=== PATIENT | female | born 1970 | race Caucasian/White ===

== ENCOUNTER 2019-10-19 14:35 | Emergency (ER) | payer OTHER ==
[~2019-10-19] VITALS: Ht 165.1 cm; Wt 112.7 kg
[~2019-10-19 14:35] MED LIST: COLCRYS0.6 MG PO; IBU600 MG PO; NORCO 325 MG-51 TAB PO; PREDNISONE20 MG PO; PRIL40 PO; PRINIVIL10 MG PO; PRINZIDE 12.5 M1 TAB PO; SINGULAIR 110 MG/TAB PO; VENTOLIN0.09 MG IH; ZOFRAN ODT4 MG PO; ZOLOFT 100MG100 MG PO; ZYRTEC 10MG10 MG PO
[2019-10-19 14:46] VITALS: TEMP 98.4
[2019-10-19 16:08] LABS: BASO % 0.2 % (0.0-2.0); EOS % 0.2 % (0-4.0); GRAN # 7.3 (1.4-6.5); GRAN % 82.8 % (42.2-75.2); HEMATOCRIT 37.8 % (37.0-47.0); HEMOGLOBIN 12.2 g/dl (12.5-16.0); LYMPH # 1.1 (1.2-3.4); LYMPH % 12.1 % (20.0-51.0); MEAN CELL VOLUME 84 fl (80.0-100.0); MEAN CORPUSCULAR HEMOGLOBIN 27 pg (27.0-31.0); MEAN CORPUSCULAR HGB CONC 32 g/dl (33.0-37.0); MEAN PLATELET VOLUME 9.1 fl (7.4-10.4); MONO # 0.4 (0.1-0.6); MONO % 4.1 % (1.7-9.3); PLATELET COUNT 364 K/mm3 (130-400); RED BLOOD COUNT 4.49 M/mm3 (4.10-5.30); REDCELL DISTRIBUTION WIDTH-CV 13.7 % (11.5-14.5)
[2019-10-19 16:10] LABS: INR 1.1 (0.8-3.0); PROTHROMBIN TIME 11.8 SECONDS (9.7-12.8)
[2019-10-19 16:17] LABS: ALANINE AMINOTRANSFERASE 40 U/L (4-34); ALBUMIN 4.4 gm/dL (3.5-5.0); ALKALINE PHOSPHATASE 75 U/L (50-136); ANION GAP 9 mmol/L (7-16); AST,SGOT 56 U/L (15-37); BILIRUBIN,TOTAL 0.4 mg/dL (0.0-1.0); BLOOD UREA NITROGEN 15 mg/dL (7-17); C-REACTIVE PROTEIN 1.7 mg/dL (0.0-0.9); CALCIUM 9.6 mg/dL (8.4-10.2); CARBON DIOXIDE 25 mmol/L (22-30); CHLORIDE 103 mmol/L (98-107); CREATININE, serum 0.77 (0.52-1.25); GLUCOSE 108 mg/dL (74-106); POTASSIUM 4.4 mmol/L (3.4-5.0); SODIUM 136 mmol/L (137-145); TOTAL PROTEIN 8.1 gm/dL (6.4-8.2)
[2019-10-19 16:40] LABS: TROPONIN-I < 0.012 ng/mL (0.000-0.035)
[2019-10-19] MEDS ORDERED: IPRATROPIUM BROM3 M1 IH (17:10)
[2019-10-19] MEDS ORDERED: NEB MC (17:11)
[2019-10-19 17:25] VITALS: BP 144/83; PULSE 89
== END 2019-10-19 17:26 | disposition home or self-care (01) ==
LOC: COL.ER 14:35
PROVIDERS: Nurse Practitioner Primary Care
DX: J45.901 Unspecified asthma with (acute) exacerbation (principal); I10 Essential (primary) hypertension; Z20.828 Contact with and (suspected) exposure to other viral communicable diseases

== ENCOUNTER 2019-10-23 10:28 | Observation (INO) | payer OTHER ==
[~2019-10-23] VITALS: Ht 165.1 cm; Wt 117.5 kg
[~2019-10-23 10:28] MED LIST changes: +IPRATROPIUM BROM3 M1 IH; +NEB MC
[2019-10-23 11:16] LABS: BASO # 0.1 (0.0-0.2); BASO % 0.5 % (0.0-2.0); EOS # 0.1 (0.0-0.7); EOS % 0.9 % (0-4.0); GRAN # 7.3 (1.4-6.5); GRAN % 69.2 % (42.2-75.2); HEMOGLOBIN 13.2 g/dl (12.5-16.0); LYMPH # 2.6 (1.2-3.4); LYMPH % 24.4 % (20.0-51.0); MEAN CELL VOLUME 85 fl (80.0-100.0); MEAN CORPUSCULAR HEMOGLOBIN 27 pg (27.0-31.0); MEAN CORPUSCULAR HGB CONC 32 g/dl (33.0-37.0); MONO # 0.5 (0.1-0.6); MONO % 4.6 % (1.7-9.3); PLATELET COUNT 389 K/mm3 (130-400); RED BLOOD COUNT 4.82 M/mm3 (4.10-5.30); REDCELL DISTRIBUTION WIDTH-CV 14.1 % (11.5-14.5)
[2019-10-23 11:26] LABS: ALANINE AMINOTRANSFERASE 44 U/L (4-34); ALBUMIN 4.7 gm/dL (3.5-5.0); ALKALINE PHOSPHATASE 80 U/L (50-136); ANION GAP 12 mmol/L (7-16); AST,SGOT 25 U/L (15-37); BILIRUBIN,TOTAL 0.4 mg/dL (0.0-1.0); BLOOD UREA NITROGEN 24 mg/dL (7-17); C-REACTIVE PROTEIN 1.4 mg/dL (0.0-0.9); CARBON DIOXIDE 27 mmol/L (22-30); CHLORIDE 99 mmol/L (98-107); CREATININE, serum 0.99 (0.52-1.25); GLUCOSE 82 mg/dL (74-106); POTASSIUM 4.1 mmol/L (3.4-5.0); SODIUM 138 mmol/L (137-145); TOTAL PROTEIN 8.4 gm/dL (6.4-8.2)
[2019-10-23 11:34] LABS: TROPONIN-I < 0.012 ng/mL (0.000-0.035)
[2019-10-23 16:21] VITALS: BP 116/92; PULSE 65; TEMP 98.1
--- NOTE | 2019-10-23 19:36 | NUR ---
Pt arrived to floor form ED this afternoon, all initial assessments complete.
--- NOTE | 2019-10-23 20:00 | NUR ---
Assessment complete. Patient complains of a very severe dry cough, even immediately after a breathing treatment; Dr. Flowers contacted and orders 10ml of Robitussin, which is administered. PRN morphine is adminstered for the pain her excessive coughing has caused. No edema is present. Will continue to monitor.
[2019-10-23 20:15] VITALS: BP 119/59; PULSE 88; TEMP 97.9
[2019-10-23 23:14] VITALS: BP 113/75; PULSE 99; TEMP 98
[2019-10-24 03:27] VITALS: BP 101/49; PULSE 86; TEMP 97.9
[2019-10-24 07:25] VITALS: BP 113/83; PULSE 70; TEMP 98.2
--- NOTE | 2019-10-24 09:33 | NUR ---
Pt awake and alert upon entry, still has an intractable cough, some C/O painrelated to the coughing. Shift assessments complete, left Pt call light in reach, bed in lowest position.
[2019-10-24 11:30] VITALS: BP 96/50; PULSE 69; TEMP 97.8
--- NOTE | 2019-10-24 12:47 | NUR ---
Initial visit; Patient was having a difficult time talking due to coughing, [facility] introduced herself letting patient know of the availability of spiritual care and a [facility] to offer prayer. She nodded "Thank You" and she understands that if she would like a [facility] visit she can tell her nurse and she will contact [facility].
--- NOTE | 2019-10-24 15:34 | NUR ---
CODY met with the patient to discuss discharge plan. The patient lives in [place] with her fiance, Valente Lyons (ph#[phone]), and son. She reports independence with ADLs and does not have any DME. The patient's PCP is Dr. Gage Vo and she receives her medications at [facility]. She reports no difficulties obtaining her meds. The patient does not have advanced directives completed. The patient plans to return home with her family upon discharge. No additional needs at this time.
[2019-10-24 16:24] VITALS: BP 99/56; PULSE 66; TEMP 98.1
--- NOTE | 2019-10-24 18:44 | NUR ---
Pt resting in the room, change in cough suppressant has reduced her coughing. Pt has had C/O headache and muscular pain from the coughing, medications given for relief. VS have remained stable.
[2019-10-24 20:01] VITALS: BP 108/59; PULSE 70; TEMP 98.6
--- NOTE | 2019-10-24 20:28 | NUR ---
Assessment complete at this time. Patient is still having a severe dry cough, which causes her pain in her trunkal area. She is breathing on room air but states she has to catch her breath after a coughing spell. No edema is present. Will continue to manage cough and pain.
[2019-10-24 23:54] VITALS: BP 115/55; PULSE 71; TEMP 98.3
[2019-10-25 04:20] VITALS: BP 117/60; PULSE 57; TEMP 97.3
[2019-10-25 07:51] VITALS: BP 121/89; PULSE 78; TEMP 98.1
--- NOTE | 2019-10-25 08:19 | NUR ---
Assessment completed, alert/oriented, vital signs stable, patient is having a severe episode of dry coughing this morning, I have given Morphine 2mg as well as the schedule cough syrup with hydrocodone, lung sounds are diminished but clear, she stated she was doing ok until she started to eat breakfast and that triggered the coughing, she wore her c-pap through the night, heart RRR/ distal pulses are palpable, will give the medicaitons a few minutes to take effect and will continue to monitor, patient denies other needs at this time
[2019-10-25 12:15] VITALS: BP 129/66; PULSE 68; TEMP 97.8
[2019-10-25 17:16] VITALS: BP 127/60; PULSE 69; TEMP 98.3
[2019-10-25 20:00] VITALS: BP 110/56; PULSE 66; TEMP 98.1
[2019-10-25 23:18] VITALS: BP 121/62; PULSE 58; TEMP 97.9
--- NOTE | 2019-10-26 03:12 | NUR ---
Pt complained of restlessness, contacted provider for Melatonin, provider did not return phone call. Pt able to rest for short periods of time. Pt has c/o mild pain at chest wall due to coughing. Pt on bipap during sleep. Has not had any anxiety this shift. Calm, and relaxed for the majority of the evening into the night. No further concerns at this time. Call light within reach.
[2019-10-26 03:17] VITALS: BP 116/67; PULSE 64; TEMP 98.2
[2019-10-26 08:03] VITALS: BP 107/54; PULSE 63; TEMP 98.1
--- NOTE | 2019-10-26 09:12 | NUR ---
PATIENT ASSESSMENT COMPLETED. SHE CONTINUES TO HAVE A NONPRODUCTIVE COUGH. SHE FEELS THE BREATHING TREATMENT BEFORE EATING WORKED ALOT BETTER. SHE COMPLAINS OF PAIN WHEN TAKING A DEEP BREATH. PRN TYLENOL #3 GIVEN. DECLINES WANTING THE COUGH DROP OR LIQUID.WAS ABLE TO EAT HOT CEREAL WITHOUT DIFFICULTY
[2019-10-26] MEDS ORDERED: TUSS PO (09:37)
[2019-10-26] MEDS ORDERED: TYLENOL W/COD1 UDTAB PO (09:37)
[2019-10-26] MEDS ORDERED: PULMICORT0.5 MG/2 M IH (09:38)
[2019-10-26] MEDS ORDERED: PREDNISONE10 MG PO (09:40)
[2019-10-26] MEDS ORDERED: DOXYCYCLINE 10100 MG PO (09:43)
--- NOTE | 2019-10-26 11:20 | NUR ---
PATIENT DISCHARGED TO HOME VIA WHEELCHAIR. ALL BELONGINGS SENT WITH PATIENT. DISCHARGE INSTRUCTIONS REVIEWED WITH HER AND PREDNISONE SCRIPT GIVEN. DENIES OTHER QUESTIONS OR CONCERNS AT THIS TIME.
== END 2019-10-26 11:20 | disposition home or self-care (01) ==
LOC: COL.ER 10:28 → MEDICAL 13:07
PROVIDERS: Emergency Medicine; ADMIT Student in an Organized Health Care Education/Training Program
DX: J45.21 Mild intermittent asthma with (acute) exacerbation (principal); M94.0 Chondrocostal junction syndrome [Tietze]; I10 Essential (primary) hypertension; K21.9 Gastro-esophageal reflux disease without esophagitis; F32.9 Major depressive disorder, single episode, unspecified; F41.9 Anxiety disorder, unspecified; R05 Cough; Z20.828 Contact with and (suspected) exposure to other viral communicable diseases; Z79.51 Long term (current) use of inhaled steroids; Z91.048 Other nonmedicinal substance allergy status; Z88.1 Allergy status to other antibiotic agents; Z91.040 Latex allergy status
CPT/HCPCS: 99232-AI; 99233-AI; G0378; J1650; J1885; J2270; J2920; J2930; J7030; J7512

== ENCOUNTER 2019-11-09 15:18 | Emergency (ER) | payer OTHER ==
[~2019-11-09] VITALS: Ht 165.1 cm; Wt 112.7 kg
[~2019-11-09 15:18] MED LIST changes: +DOXYCYCLINE 10100 MG PO; +PREDNISONE10 MG PO; +PULMICORT0.5 MG/2 M IH; +TUSS PO; +TYLENOL W/COD1 UDTAB PO
[2019-11-09 15:22] VITALS: TEMP 98.3
[2019-11-09 16:04] LABS: BASO % 0.3 % (0.0-2.0); EOS # 0.1 (0.0-0.7); EOS % 0.9 % (0-4.0); GRAN # 4.3 (1.4-6.5); HEMATOCRIT 37.7 % (37.0-47.0); HEMOGLOBIN 12.2 g/dl (12.5-16.0); LYMPH # 1.8 (1.2-3.4); LYMPH % 26.9 % (20.0-51.0); MEAN CELL VOLUME 86 fl (80.0-100.0); MEAN CORPUSCULAR HEMOGLOBIN 28 pg (27.0-31.0); MEAN CORPUSCULAR HGB CONC 32 g/dl (33.0-37.0); MEAN PLATELET VOLUME 8.9 fl (7.4-10.4); MONO # 0.4 (0.1-0.6); MONO % 6.7 % (1.7-9.3); PLATELET COUNT 273 K/mm3 (130-400); RED BLOOD COUNT 4.39 M/mm3 (4.10-5.30); REDCELL DISTRIBUTION WIDTH-CV 14.7 % (11.5-14.5)
[2019-11-09 16:17] LABS: ALANINE AMINOTRANSFERASE 51 U/L (4-34); ALBUMIN 4.1 gm/dL (3.5-5.0); ALKALINE PHOSPHATASE 64 U/L (50-136); ANION GAP 7 mmol/L (7-16); AST,SGOT 35 U/L (15-37); BILIRUBIN,TOTAL 0.4 mg/dL (0.0-1.0); BLOOD UREA NITROGEN 9 mg/dL (7-17); CALCIUM 8.9 mg/dL (8.4-10.2); CARBON DIOXIDE 30 mmol/L (22-30); CHLORIDE 98 mmol/L (98-107); CREATINE KINASE 40 U/L (30-135); CREATININE, serum 0.62 (0.52-1.25); GLUCOSE 96 mg/dL (74-106); POTASSIUM 3.5 mmol/L (3.4-5.0); SODIUM 134 mmol/L (137-145); TOTAL PROTEIN 7.1 gm/dL (6.4-8.2)
[2019-11-09 16:18] LABS: D-DIMER < 200.00 ng/mLDDu (200-230)
[2019-11-09 16:25] LABS: TROPONIN-I < 0.012 ng/mL (0.000-0.035)
[2019-11-09 16:33] LABS: ERYTHROCYTE SEDIMENTATION RATE 13 mm/hr (0-20)
[2019-11-09] MEDS ORDERED: NORCO 325 MG-51 TAB PO (17:38)
[2019-11-09] MEDS ORDERED: PREDNISONE20 MG PO (17:38)
[2019-11-09 17:50] VITALS: BP 120/97; PULSE 88
== END 2019-11-09 18:00 | disposition home or self-care (01) ==
LOC: COL.ER 15:18
PROVIDERS: Emergency Medicine
DX: J45.901 Unspecified asthma with (acute) exacerbation (principal); R07.81 Pleurodynia; I10 Essential (primary) hypertension; K21.9 Gastro-esophageal reflux disease without esophagitis; F32.9 Major depressive disorder, single episode, unspecified; Z90.89 Acquired absence of other organs; Z79.52 Long term (current) use of systemic steroids
CPT/HCPCS: J2060; J7030; J7512

== ENCOUNTER → 2020-01-08 | Outpatient (CLI) | payer OTHER | LOC: COL.VAS 13:53 | DX: R06.02 Shortness of breath (principal); R07.9 Chest pain, unspecified ==

== ENCOUNTER 2020-02-13 09:05 | Day surgery (SDC) | payer OTHER ==
[2020-02-13] VITALS (17 sets, daily range): BP systolic 95–124; BP diastolic 57–74; PULSE 64–90; TEMP 98.5
[~2020-02-13] VITALS: Ht 165.1 cm; Wt 118.9 kg
[2020-02-13 09:37] LABS: HEMATOCRIT 39.1 % (37.0-47.0); HEMOGLOBIN 12.7 g/dl (12.5-16.0); MEAN CELL VOLUME 85 fl (80.0-100.0); MEAN CORPUSCULAR HEMOGLOBIN 28 pg (27.0-31.0); MEAN CORPUSCULAR HGB CONC 33 g/dl (33.0-37.0); MEAN PLATELET VOLUME 8.7 fl (7.4-10.4); PLATELET COUNT 369 K/mm3 (130-400); RED BLOOD COUNT 4.58 M/mm3 (4.10-5.30); REDCELL DISTRIBUTION WIDTH-CV 13.7 % (11.5-14.5)
[2020-02-13 09:42] LABS: INR 1.1 (0.8-3.0); PROTHROMBIN TIME 11.9 SECONDS (9.7-12.8)
[2020-02-13 09:45] LABS: ALBUMIN 4.6 gm/dL (3.5-5.0); BILIRUBIN,TOTAL 0.5 mg/dL (0.0-1.0); CALCIUM 9.2 mg/dL (8.4-10.2); CREATININE, serum 0.74 (0.52-1.25); MAGNESIUM 1.9 mg/dL (1.6-2.3); POTASSIUM 4.1 mmol/L (3.4-5.0); TOTAL PROTEIN 7.9 gm/dL (6.4-8.2)
[2020-02-13] MEDS ORDERED: IPRATROPIUM BROM3 M1 IH (09:56)
[2020-02-13] MEDS ORDERED: ZYRTEC 10MG10 MG PO (09:56)
[2020-02-13] MEDS ORDERED: FLONASEALLERGY NS (09:56)
[2020-02-13] MEDS ORDERED: SINGULAIR 110 MG/TAB PO (09:56)
[2020-02-13] MEDS ORDERED: TRELEGY ELLIPT1 EACH IH (09:57)
[2020-02-13] MEDS ORDERED: COREG 6.256.25 MG/TA PO (09:57)
[2020-02-13] MEDS ORDERED: BENICAR 20MG TA20 MG PO (09:57)
[2020-02-13] MEDS ORDERED: HYGROTON 2525 MG/TAB PO (09:58)
[2020-02-13] MEDS ORDERED: ASPIRIN E.C. 8181 MG PO (09:59)
[2020-02-13] MEDS ORDERED: DESYREL 50MG50 MG PO (09:59)
[2020-02-13] MEDS ORDERED: ZOLOFT 100MG100 MG PO (09:59)
[2020-02-13] MEDS ORDERED: PRIL40 PO (10:00)
[2020-02-13] MEDS ORDERED: ATARAX 25MG25 MG/TAB PO (10:00)
--- NOTE | 2020-02-13 11:30 | NUR ---
Pt has c/o headache pain following MELLISA procedure. Lights dimmed, blinds closed in room. Cool wash cloth also applied over eyes and forehead. Dr Bush aware, and will be writing order for pain med.
--- NOTE | 2020-02-13 13:30 | NUR ---
Pt assisted up to restroom, gait steady. Headache pain improved.
--- NOTE | 2020-02-13 14:23 | NUR ---
SEE MERGE DOCUMENTATION FOR MEDICATION ADMINISTRTION AND INTRA/POST PROCEDURE SEDATION ASSESSMENTS.
--- NOTE | 2020-02-13 15:24 | NUR ---
Rt groin venous access site is soft to palpation. Dressing is clean, dry and intact. Pt resting comfortably in bed, denies needs. Headache resolved.
--- NOTE | 2020-02-13 15:45 | NUR ---
Pt's contacted per pt's request to update him. He states he is currently driving to [place]. He is aware pt should be ready for discharge at 1800, and states he will be back by that time.
--- NOTE | 2020-02-13 16:34 | NUR ---
Chest pain improved, pt talkative and appears more comfortable. Sparks tray provided.
--- NOTE | 2020-02-13 16:45 | NUR ---
Pt denies any further pain or discomfort. States she feels chest pain may have been positional, and feels better since head of bed has been elevated. She is able to eat sandwich tray without issue. Denies further needs at this time. Call light in reach.
--- NOTE | 2020-02-13 17:45 | NUR ---
14 cc air released from right tband and dressing applied. Right groin soft to palpation and CD&I. INT discontinued intact.
--- NOTE | 2020-02-13 18:06 | NUR ---
Discharge instructions given.
--- NOTE | 2020-02-13 18:14 | NUR ---
Transferred to private car by janes
== END 2020-02-13 18:16 | disposition home or self-care (01) ==
LOC: COL.CAR 09:05
PROVIDERS: Internal Medicine Cardiovascular Disease
DX: R07.9 Chest pain, unspecified (principal); R06.02 Shortness of breath; I08.1 Rheumatic disorders of both mitral and tricuspid valves; I10 Essential (primary) hypertension; F41.9 Anxiety disorder, unspecified; J45.909 Unspecified asthma, uncomplicated; F32.9 Major depressive disorder, single episode, unspecified; K21.9 Gastro-esophageal reflux disease without esophagitis; Z20.828 Contact with and (suspected) exposure to other viral communicable diseases; Z88.6 Allergy status to analgesic agent; Z88.1 Allergy status to other antibiotic agents; Z91.040 Latex allergy status; Z79.899 Other long term (current) drug therapy; Z79.51 Long term (current) use of inhaled steroids
CPT/HCPCS: J1644; J2250; J2704; J3010

== ENCOUNTER 2020-02-21 14:47 | Emergency (ER) | payer SELFPAY ==
[~2020-02-21] VITALS: Ht 162.6 cm; Wt 118.2 kg
[~2020-02-21 14:47] MED LIST changes: +ASPIRIN E.C. 8181 MG PO; +ATARAX 25MG25 MG/TAB PO; +BENICAR 20MG TA20 MG PO; +COREG 6.256.25 MG/TA PO; +DESYREL 50MG50 MG PO; +FLONASEALLERGY NS; +HYGROTON 2525 MG/TAB PO; +TRELEGY ELLIPT1 EACH IH
[2020-02-21 14:53] VITALS: BP 117/81; TEMP 98.2
[2020-02-21 16:07] VITALS: PULSE 78
== END 2020-02-21 16:06 | disposition home or self-care (01) ==
LOC: COL.ER 14:47
DX: S61.012A Laceration without foreign body of left thumb without damage to nail, initial encounter (principal); J45.909 Unspecified asthma, uncomplicated; I10 Essential (primary) hypertension; F32.9 Major depressive disorder, single episode, unspecified; K21.9 Gastro-esophageal reflux disease without esophagitis; Z88.1 Allergy status to other antibiotic agents; Z88.6 Allergy status to analgesic agent; Z79.82 Long term (current) use of aspirin; W26.0XXA Contact with knife, initial encounter

== ENCOUNTER → 2020-07-06 | Outpatient (CLI) | payer BC ==
[~2020-07-06] MED LIST changes: +ABILIFY5 MG PO; +HCTZ 25MG TAB25 MG PO; +TOPROL XL 25MG25 MG PO
[2020-07-06 12:47] LABS: BASO % 0.3 % (0.0-2.0); EOS # 0.2 (0.0-0.7); EOS % 2.3 % (0-4.0); GRAN # 4.9 (1.4-6.5); GRAN % 72.2 % (42.2-75.2); HEMOGLOBIN 10.9 g/dl (12.5-16.0); LYMPH # 1.4 (1.2-3.4); LYMPH % 19.8 % (20.0-51.0); MEAN CELL VOLUME 85 fl (80.0-100.0); MEAN CORPUSCULAR HEMOGLOBIN 27 pg (27.0-31.0); MEAN CORPUSCULAR HGB CONC 32 g/dl (33.0-37.0); MEAN PLATELET VOLUME 8.6 fl (7.4-10.4); MONO # 0.4 (0.1-0.6); MONO % 5.1 % (1.7-9.3); PLATELET COUNT 313 K/mm3 (130-400); RED BLOOD COUNT 4.08 M/mm3 (4.10-5.30); REDCELL DISTRIBUTION WIDTH-CV 14.4 % (11.5-14.5)
[2020-07-06 12:49] LABS: HEMATOCRIT 34.5 % (37.0-47.0)
[2020-07-06 13:08] LABS: BILIRUBIN,TOTAL 0.1 mg/dL (0.0-1.0); CALCIUM 8.7 mg/dL (8.4-10.2); CREATININE, serum 0.64 (0.52-1.25); POTASSIUM 3.7 mmol/L (3.4-5.0); TOTAL PROTEIN 7.3 gm/dL (6.4-8.2)
== END ==
LOC: COL.LAB 12:08
PROVIDERS: Physician Assistant Medical
DX: R60.0 Localized edema (principal); R06.2 Wheezing

== ENCOUNTER 2020-08-07 12:55 | Emergency (ER) | payer BC ==
[~2020-08-07] VITALS: Ht 165.1 cm; Wt 127.3 kg
[~2020-08-07 12:55] MED LIST changes: -ABILIFY5 MG PO; -HCTZ 25MG TAB25 MG PO; -TOPROL XL 25MG25 MG PO
[2020-08-07 13:49] LABS: BASO % 0.6 % (0.0-2.0); EOS # 0.2 (0.0-0.7); EOS % 2.5 % (0-4.0); GRAN # 4.7 (1.4-6.5); GRAN % 71.6 % (42.2-75.2); HEMOGLOBIN 11.7 g/dl (12.5-16.0); LYMPH # 1.3 (1.2-3.4); LYMPH % 19.6 % (20.0-51.0); MEAN CELL VOLUME 85 fl (80.0-100.0); MEAN CORPUSCULAR HEMOGLOBIN 27 pg (27.0-31.0); MEAN CORPUSCULAR HGB CONC 32 g/dl (33.0-37.0); MEAN PLATELET VOLUME 8.6 fl (7.4-10.4); MONO # 0.4 (0.1-0.6); MONO % 5.4 % (1.7-9.3); PLATELET COUNT 341 K/mm3 (130-400); RED BLOOD COUNT 4.36 M/mm3 (4.10-5.30); REDCELL DISTRIBUTION WIDTH-CV 14.6 % (11.5-14.5)
[2020-08-07 13:53] LABS: ACETAMINOPHEN < 10 ug/mL (10-30); ALANINE AMINOTRANSFERASE 37 U/L (4-34); ALBUMIN 4.1 gm/dL (3.5-5.0); ALCOHOL(ethanol),MEDICAL < 10 mg/dL; ALKALINE PHOSPHATASE 93 U/L (50-136); ANION GAP 5 mmol/L (7-16); AST,SGOT 34 U/L (15-37); BILIRUBIN,TOTAL 0.2 mg/dL (0.0-1.0); BLOOD UREA NITROGEN 14 mg/dL (7-17); CALCIUM 9.1 mg/dL (8.4-10.2); CARBON DIOXIDE 27 mmol/L (22-30); CHLORIDE 104 mmol/L (98-107); CREATININE, serum 0.66 (0.52-1.25); GLUCOSE 85 mg/dL (74-106); POTASSIUM 4.1 mmol/L (3.4-5.0); SALICYLATE < 1.0 mg/dL; SODIUM 136 mmol/L (137-145); TOTAL PROTEIN 7.6 gm/dL (6.4-8.2)
[2020-08-07 14:27] LABS: COLLECTION METHOD CLEAN CATCH
[2020-08-07 14:47] LABS: TRICYCLIC ANTIDEPRESS URINE NEGATIVE
[2020-08-07 14:54] LABS: PH 7 (5-8); SQUAMOUS EPITHELIAL None Seen /hpf; URINE APPEARANCE Clear; URINE BACTERIA None Seen /hpf; URINE BILIRUBIN Negative (NEGATIVE); URINE BLOOD Negative (NEGATIVE); URINE COLOR Straw; URINE GLUCOSE Negative (NEGATIVE); URINE KETONE Negative (NEGATIVE); URINE LEUKOCYTE ESTERASE Negative (NEGATIVE); URINE NITRATE Negative (NEGATIVE); URINE PROTEIN(semi-quant) Negative (NEGATIVE); URINE RBC 0-2 /hpf; URINE UROBILINOGEN Negative (NEGATIVE)
[2020-08-07] MEDS ORDERED: HCTZ 25MG TAB25 MG PO (18:04)
[2020-08-07] MEDS ORDERED: TOPROL XL 25MG25 MG PO (18:06)
[2020-08-07] MEDS ORDERED: ABILIFY5 MG PO (18:07)
[2020-08-07 20:38] VITALS: BP 103/66; PULSE 77; TEMP 97.9
== END 2020-08-07 20:38 ==
LOC: COL.ER 12:55
PROVIDERS: Physician Assistant
DX: F32.9 Major depressive disorder, single episode, unspecified (principal); R45.851 Suicidal ideations; G47.00 Insomnia, unspecified; F41.0 Panic disorder [episodic paroxysmal anxiety]; J45.909 Unspecified asthma, uncomplicated; I10 Essential (primary) hypertension; K21.9 Gastro-esophageal reflux disease without esophagitis; Z20.822 Contact with and (suspected) exposure to COVID-19; Z79.899 Other long term (current) drug therapy
CPT/HCPCS: J1885; J2550

== ENCOUNTER 2020-10-04 19:08 | Emergency (ER) | payer SELFPAY ==
[~2020-10-04] VITALS: Ht 165.1 cm; Wt 127.3 kg
[~2020-10-04 19:08] MED LIST changes: +ABILIFY5 MG PO; +HCTZ 25MG TAB25 MG PO; +TOPROL XL 25MG25 MG PO
[2020-10-04 22:15] VITALS: BP 124/64; PULSE 84; TEMP 98.3
== END 2020-10-04 22:15 | disposition home or self-care (01) ==
LOC: COL.ER 19:08
DX: S61.012A Laceration without foreign body of left thumb without damage to nail, initial encounter (principal); W26.0XXA Contact with knife, initial encounter; Y92.000 Kitchen of unspecified non-institutional (private) residence as the place of occurrence of the external cause